=== PATIENT | male | born 1980 | race African-American/Black ===

== ENCOUNTER 2021-02-16 10:02 | Emergency (ER) | payer BC, OTHER ==
[2021-02-16 10:18] VITALS: BP 154/102; PULSE 105; TEMP 98; BMI 26.4
[2021-02-19 13:07] LABS: SARS-CoV-2 NAA Detected (Not Detected)
== END 2021-02-16 11:51 | disposition home or self-care (01) ==
LOC: JER 10:02
DX: M54.2 Cervicalgia (principal); R05.1 Acute cough; R51.9 Headache, unspecified
CPT/HCPCS: 87070; 87077; 87804; 99283-25; C9803-CS; U0003; U0005

== ENCOUNTER 2021-09-04 16:18 | Emergency (ER) | payer OTHER ==
[2021-09-04 16:50] VITALS: BP 115/85; PULSE 107; TEMP 99.3; BMI 28.1
[2021-09-04] MEDS ORDERED: KETOROLAC TROMETHAMINE 60 MG/2 ML VIAL IM ONE (17:34)
[2021-09-04] MEDS ORDERED: KETOROLAC TROMETHAMINE 60 MG/2 ML VIAL ONE (17:41)
== END 2021-09-04 18:53 | disposition home or self-care (01) ==
LOC: JER 16:18 → JERFT 16:18
PROC: 3E0233Z Introduction of Anti-inflammatory into Muscle, Percutaneous Approach (ICD-10-PCS; principal; 2021-09-04)
DX: M25.511 Pain in right shoulder (principal)
CPT/HCPCS: 73030-TC-LT-FY; 99284-25